=== PATIENT | male | born 1945 | race Caucasian/White ===

== ENCOUNTER 2019-01-14 14:49 | Outpatient (CLI) | payer MEDICARE, BC ==
--- NOTE | 2019-01-14 16:22 | RAD ---
CHEST TWO VIEWS: HISTORY: Lung mass. COMPARISON: None. FINDINGS: There appears to be increased density in the left perihilar region. Normal cardiac silhouette. Atherosclerosis of the aortic knob. Small left-sided pleural effusion with elevation of the left hemidiaphragm, which may represent post surgical change. There may be post surgical changes involving the left ribs. No pneumothorax. IMPRESSION: Improved post surgical change, left hemithorax. Underlying mass cannot be excluded. Comparison with p rior imaging would be beneficial. POS: [facility]
== END 2019-01-14 14:50 | disposition home or self-care (01) ==
LOC: RAD 14:49
PROVIDERS: ATTEND Thoracic Surgery (Cardiothoracic Vascular Surgery)
DX: R91.8 Other nonspecific abnormal finding of lung field (principal); Z98.890 Other specified postprocedural states
CPT/HCPCS: 71046

== ENCOUNTER 2019-04-24 14:54 | Outpatient (CLI) | payer MEDICARE, BC ==
--- NOTE | 2019-04-24 15:16 | RAD ---
EXAM: Chest 2 views: HISTORY: Lung mass COMPARISON: 01/14/2019 FINDINGS: There is a normal-sized cardiomediastinal silhouette. Opacity in the left lung base may represent th e patient's normal left cardiac border. There appears to be wedge-shaped medial opacity in the left lung base . The bones are unremarkable. IMPRESSION: Stable exam
== END 2019-04-24 14:55 | disposition home or self-care (01) ==
LOC: RAD 14:54
PROVIDERS: ATTEND Thoracic Surgery (Cardiothoracic Vascular Surgery)
DX: R91.8 Other nonspecific abnormal finding of lung field (principal)
CPT/HCPCS: 71046

== ENCOUNTER 2019-07-22 13:50 | Outpatient (CLI) | payer MEDICARE, BC ==
--- NOTE | 2019-07-22 14:10 | RAD ---
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 Follow-up. COMPARISON: 04/24/2019 and 01/14/2019. FINDINGS: There is chronic left lung volume loss, with chronic blunting of the left lateral costophrenic angle, and tenting of the left hemidiaphragm. Surgical clip at the left hilum, which is superiorly retracted. There is no new consolidation, pulmonary edema, pleural effusion, pneumothorax, or cardiomegaly. No n ew pulmonary mass is identified, but CT would be much more sensitive than plain chest radiograph. No interval change is detected. There has been no interval change. IMPRESSION: 1. No evidence of active cardiopulmonary disease. 2. Status post left upper pulmonary lobectomy.
== END 2019-07-22 13:51 | disposition home or self-care (01) ==
LOC: BICRAD 13:50
PROVIDERS: ATTEND Family Medicine
DX: C34.12 Malignant neoplasm of upper lobe, left bronchus or lung (principal); Z90.2 Acquired absence of lung [part of]
CPT/HCPCS: 71046